=== PATIENT | male | born 1975 | race Two or more races ===

== ENCOUNTER 2021-05-06 09:39 | Emergency (ER) | payer BC ==
[~2021-05-06] VITALS: Ht 170.2 cm; Wt 77.2 kg
--- NOTE | 2021-05-06 10:07 | EKG ---
[address] [address] Test Date: 2021-05-06 Test Time: 10:00:18 Pat Name: TATIANA ORTA Department: Room: Gender: M Guest Relation Officer: CONNIE : 1975 Requested By: RANDALL BARAJAS Order Number: [id number] Reading MD: Edison Mcocy MD Measurements Intervals [place] Rate: 90 P: 90 VT: 164 QRS: 68 QRSD: 84 T: 23 QT: 342 QTc: 422 Interpretive Statements SINUS RHYTHM Electronically Signed On 05-09-2021 8:30:04 [employer] INFORMATION CLERK by Edison Mccoy MD
[2021-05-06] MEDS ORDERED: IOHEXOL 300 MG/ML 75 ML VIAL. IV ONE (10:15)
--- NOTE | 2021-05-06 10:15 | PHYS DOC ---
Past History Past Surgical History: No Surgical History Alcohol Use: None General Adult EDM: Chief Complaint: DIZZY/LIGHT HEADED HPI: HPI: 45-year-old male presents with hypertension and dizziness. The patient was at an appointment with a GI specialist [facility] when he was found to have very high blood pressure and stated like he felt like he might pass out. They advised to come the emergency room for further evaluation. Patient is on hydrochlorothiazide for the last 2 years. He just took his dose about 45 minutes ago. He admits to having hand and feet tingling when he gets in a room full of crowded people. He also gets an elevated heart rate. He has been having this for a few months. He also states feeling dizzy during these times but is not always in a crowded room. He feels this way sometimes with abdominal pain which is why he was seeing the GI specialist. He currently feels like his abdomen is full and he did not have any breakfast. Denies fever or chills. He is on citalopram. Review of Systems: Review of Systems: Constitutional: Denies fever or chills Eyes: Denies change in visual acuity HENT: Denies nasal congestion or sore throat Respiratory: Denies cough or shortness of breath Cardiovascular: Denies chest pain or edema GI: Upper abdominal pain. Denies nausea, vomiting, bloody stools or diarrhea : Denies dysuria Musculoskeletal: Denies back pain or joint pain Integument: Denies rash Neurologic: Dizziness. Denies headache, focal weakness or sensory changes Endocrine: Denies polyuria or polydipsia Lymphatic: Denies swollen glands Psychiatric: anxiety Allergies: Allergies: Allergies Coded Allergies Type Severity Reaction Last Updated Verified No Known Drug Allergies 05/06/21 No Physical Exam: PE: Constitutional: Well developed, well nourished, no acute distress, non-toxic appearance. [] HENT: Normocephalic, atraumatic, bilateral external ears normal, oropharynx moist, no oral exudates, nose normal. [] Eyes: PERRLA, EOMI, conjunctiva normal, no discharge. [] Neck: Normal range of motion, no tenderness, supple, no stridor. [] Cardiovascular: Heart rate regular rhythm, no murmur [] Lungs & Thorax: Bilateral breath sounds clear to auscultation [] Abdomen: Bowel sounds normal, soft, mild upper tenderness, no masses, no pulsatile masses. [] Skin: Warm, dry, no erythema, no rash. [] Back: No tenderness, no CVA tenderness. [] Extremities: No tenderness, no cyanosis, no clubbing, ROM intact, no edema. [] Neurologic: Alert and oriented X 3, normal motor function, normal sensory function, no focal deficits noted. [] Psychologic: Affect normal, judgement normal, mood anxious. [] Current Patient Data: Vital Signs: Vital Signs Date Time Temp Pulse Resp B/P (MAP) Pulse Ox O2 Delivery O2 Flow Rate FiO2 05/06/21 09:58 98.2 106 18 180/99 (126) 97 EKG: EKG: Sinus rhythm, rate 90, normal axis, no ST elevation or depression. [] Radiology/Procedures: Radiology/Procedures: [] Heart Score: C/O Chest Pain: No Risk Factors: Risk Factors: DM, Current or recent (<one month) smoker, HTN, HLP, family history of CAD, obesity. Risk Scores: Score 0 - 3: 2.5% MACE over next 6 weeks - Discharge Home Score 4 - 6: 20.3% MACE over next 6 weeks - Admit for Clinical Observation Score 7 - 10: 72.7% MACE over next 6 weeks - Early Invasive Strategies Course & Med Decision Making: Course & Med Decision Making Pertinent Labs and Imaging studies reviewed. (See chart for details) The patient's EKG is unremarkable. His labs are essentially unremarkable. His troponin is negative. Chest x-ray is negative for acute findings. Based on the patient's description of his racing heart rate and tingling in his upper lower extremities, this sounds like anxiety. He is on an antidepressant. He made it in a dosing adjustment or potentially something for breakthrough. I have advised him to follow-up with his primary physician to discuss this. His blood pressure has improved to 145/89 which is a significant improvement from his arrival. I suspect his medication is just now kicking in. He will also discuss further management with his primary physician. He is stable for discharge at this time. [] Dragon Disclaimer: Dragon Disclaimer: This electronic medical record was generated, in whole or in part, using a voice recognition dictation system. Departure Departure: Impression: Primary Impression: Hypertension Qualified Codes: I10 - Essential (primary) hypertension Additional Impression: Generalized anxiety disorder with panic attacks Disposition: 01 HOME / SELF CARE / HOMELESS Condition: STABLE Referrals: VITOR STRATTON MD (PCP) Patient Instructions: Anxiety and Panic Attacks, [id number], Hypertension, [id number] RANDALL BARAJAS DO May 06, 2021 10:15
[2021-05-06] MEDS ORDERED: IOHEXOL 300 MG/ML 75 ML VIAL. ONE (10:23)
[2021-05-06] MEDS ORDERED: CONTRAST GIVEN. MC PRN (10:30)
[2021-05-06 10:38] LABS: BASO % 0 % (0-3); EOS # 0.1 x10^3/uL (0.0-0.7); EOS % 1 % (0-3); HEMOGLOBIN 17.4 g/dL (13.0-17.5); LYMPH # 2.2 x10^3/uL (1.0-4.8); LYMPH % 22 % (24-48); MEAN CORPUSCULAR HEMOGLOBIN 31 pg (25-35); MEAN CORPUSCULAR HGB CONC 34 g/dL (31-37); MEAN CORPUSCULAR VOLUME 89 fL (79-100); MONO # 0.5 x10^3/uL (0.0-1.1); MONO % 5 % (0-9); NEUT % 71 % (31-73); PLATELET COUNT 310 x10^3/uL (140-400); RED BLOOD COUNT 5.72 x10^6/uL (4.30-5.70); RED CELL DISTRIBUTION WIDTH 13.1 % (11.5-14.5); WHITE BLOOD COUNT 9.9 x10^3/uL (4.0-11.0)
[2021-05-06 10:48] LABS: BARBITURATES NEG (NEG); BENZODIAZEPINES NEG (NEG); CALCIUM 9.6 mg/dL (8.5-10.1); CANNABINOIDS NEG (NEG); COCAINE NEG (NEG); CREATININE 1.2 mg/dL (0.7-1.3); GFR 66.1; METHADONE NEG (NEG); OPIATES NEG (NEG); PHENCYCLIDINE NEG (NEG); POTASSIUM 3.2 mmol/L (3.5-5.1)
[2021-05-06 10:49] LABS: AMPHETAMINE/METHAMPHETAMINE NEG (NEG)
--- NOTE | 2021-05-06 10:50 | RAD ---
Exam Date: 05/06/2021 10:[address] ABDOMEN+PELVIS W Indication: Reason: upper abdominal pain ORDERED CONTRAST / Spl. Instructions: / History: . TECHNIQUE: CT examination of the abdomen and pelvis was performed following the administration of or al and nonionic intravenous contrast. One or more of the following dose reduction techniques were ut ilized: *Automated exposure control (AEC) *Adjustment of mA and/or kV according to patient size *Use of iterative reconstruction technique *CT scan done according to ALARA, or ALARA/IMAGE GENTLY FINDINGS: The visualized lung bases are clear. The liver, gallbladder, spleen, pancreas, adrenal glands and kidneys are normal. Urinary bladder is normal in appearance. There is no bowel obstruction or inflammation. The appendix is normal. No significant atherosclerotic calcifications are seen. No lymphadenopathy or ascites is seen. Degenerative changes are seen in the spine. IMPRESSION: No evidence of acute intra-abdominal pathology. Electronically signed by: Carlos Cueva MD (05/06/2021 10:47 AM) [id number]
[2021-05-06 10:52] LABS: BILIRUBIN,URINE NEG (NEG); CLARITY,URINE CLEAR; COLOR,URINE YELLOW; GLUCOSE,URINE NEG (NEG)
[2021-05-06 10:53] LABS: ALBUMIN 4.2 g/dL (3.4-5.0); BACTERIA,URINE 0 /HPF (0-FEW); NITRITE,URINE NEG (NEG); RBC,URINE 0 /HPF (0-2); SQUAMOUS EPITHELIAL CELL,UR OCC /LPF; TOTAL BILIRUBIN 1.5 mg/dL (0.2-1.0); TOTAL PROTEIN 8.4 g/dL (6.4-8.2); UROBILINOGEN,URINE 0.2 mg/dL (0.2 mg/dL); WBC,URINE OCC /HPF (0-4)
--- NOTE | 2021-05-06 10:54 | RAD ---
Single view of the chest. 05/06/2021 10:31 AM Indication: Reason: dizziness / Spl. Instructions: / History: Comparison: None Findings: There is no focal consolidation. There is no pleural effusion or pneumothorax. The cardiome diastinal silhouette and pulmonary vasculature are within normal limits. No acute osseous abnormaliti es are seen. Impression: No evidence of acute cardiopulmonary process. Electronically signed by: David Dawn MD (05/06/2021 10:52 AM) [id number]
[2021-05-06 11:07] VITALS: BP 148/89
== END 2021-05-06 11:15 | disposition home or self-care (01) ==
LOC: ER 09:51
DX: I10 Essential (primary) hypertension (principal); F41.1 Generalized anxiety disorder; R10.10 Upper abdominal pain, unspecified
CPT/HCPCS: 36415; 71045; 74177; 80053; 80307; 81001; 83690; 84484; 85025; 93005; 99285; Q9967